=== PATIENT | female | born 1955 | race Caucasian/White ===

== ENCOUNTER 2021-08-27 10:13 | Outpatient (CLI) | payer MEDICARE | END 2021-08-27 10:14 | disposition home or self-care (01) | LOC: CSHMAMMO 10:13 | PROVIDERS: ATTEND Family Medicine | DX: Z12.31 Encounter for screening mammogram for malignant neoplasm of breast (principal); Z98.82 Breast implant status | CPT/HCPCS: 77063; 77067 ==

== ENCOUNTER 2022-09-01 11:09 | Outpatient (CLI) | payer MEDICARE | END 2022-09-01 11:10 | disposition home or self-care (01) | LOC: CSHMAMMO 11:09 | PROVIDERS: ATTEND Family Medicine | DX: Z12.31 Encounter for screening mammogram for malignant neoplasm of breast (principal); Z98.82 Breast implant status | CPT/HCPCS: 77063; 77067 ==

== ENCOUNTER 2023-09-15 14:54 | Outpatient (CLI) | payer MEDICARE | END 2023-09-15 14:55 | disposition home or self-care (01) | LOC: CSHMAMMO 14:54 | PROVIDERS: ATTEND Family Medicine | DX: Z12.31 Encounter for screening mammogram for malignant neoplasm of breast (principal); Z98.82 Breast implant status | CPT/HCPCS: 77063; 77067 ==

== ENCOUNTER 2024-09-20 14:59 | Outpatient (CLI) | payer MEDICARE | END 2024-09-20 15:00 | disposition home or self-care (01) | LOC: CSHMAMMO 14:59 | PROVIDERS: ATTEND Family Medicine | DX: Z12.31 Encounter for screening mammogram for malignant neoplasm of breast (principal); Z98.82 Breast implant status | CPT/HCPCS: 77063; 77067 ==